=== PATIENT | female | born 1935 | race Caucasian/White ===

== ENCOUNTER 2021-09-13 03:48 | Inpatient (IN) | payer MEDICARE ==
[2021-09-13] MEDS ORDERED: SODIUM CHLORIDE 0.9% 1,000 ML IV STA (04:06)
[2021-09-13] MEDS ORDERED: LABETALOL 5 MG/ML VIAL MDV IVP STA ×2 (04:10→05:38)
[2021-09-13] MEDS ORDERED: MORPHINE SULFATE 4 MG/ML SYRINGE IVP STA (04:10)
--- NOTE | 2021-09-13 04:21 | ED ---
Weakness HPI - General Stated complaint: Stroke-like symptoms Time Seen by Provider: 09/13/21 03:50 Source: RN notes reviewed, old records reviewed Mode of arrival: EMS Limitations: altered mental status - History of Present Illness Initial comments: 76-year-old female poor historian. Patient is coming in for what may appear to be some altered mental status not acting appropriately. Patient per family and EMS to obtain history. Patient is able to respond is alert and oriented is able to move all extremities without difficulty. No family is currently at bedside. Patient is unable to give any history of complaints currently. She is able answer questions. Is able answer yes or no. MD Complaint: generalized weakness, lack of energy, difficulty walking -: unknown Location: generalized Severity: severe Severity scale (1-10): 10 Quality: constant Consistency: constant Improves with: none Worsens with: none Context: recent illness, history of similar Associated Symptoms: confusion, loss of appetite, nausea/vomiting - Related Data Home Medications Medication Instructions Recorded Confirmed No Known Home Medications 09/13/21 09/13/21 Allergies Allergy/AdvReac Type Severity Reaction Status Date / Time No Known Allergies Allergy Verified 09/13/21 05:06 Review of Systems ROS Statement: Those systems with pertinent positive or pertinent negative responses have been documented in the HPI. ROS Other: All systems not noted in ROS Statement are negative. General Exam Limitations: altered mental status General appearance: alert, anxious, lethargic, cachectic Head exam: Present: atraumatic, normocephalic, normal inspection Eye exam: Present: normal appearance, PERRL, EOMI. Absent: scleral icterus, conjunctival injection, periorbital swelling ENT exam: Present: normal exam, mucous membranes moist Neck exam: Present: normal inspection. Absent: tenderness, meningismus, lymphadenopathy Respiratory exam: Present: normal lung sounds bilaterally. Absent: respiratory distress, wheezes, rales, rhonchi, stridor Cardiovascular Exam: Present: regular rate, normal rhythm, normal heart sounds. Absent: systolic murmur, diastolic murmur, rubs, gallop, clicks GI/Abdominal exam: Present: soft, normal bowel sounds. Absent: distended, tenderness, guarding, rebound, rigid Extremities exam: Present: normal inspection, full ROM, normal capillary refill. Absent: tenderness, pedal edema, joint swelling, calf tenderness Back exam: Present: normal inspection Neurological exam: Present: alert, oriented X3, CN II-XII intact Psychiatric exam: Present: normal affect, normal mood Skin exam: Present: warm, dry, intact, normal color. Absent: rash Course Vital Signs 09/13/21 09/13/21 09/13/21 04:40 06:46 07:28 Temperature 97.5 F L Pulse Rate 81 Respiratory 16 12 12 Rate Blood Pressure 221/141 O2 Sat by Pulse 95 Oximetry 09/13/21 09/13/21 09/13/21 08:06 08:16 11:17 Temperature Pulse Rate 90 79 Respiratory 16 18 Rate Blood Pressure 178/120 165/101 178/106 O2 Sat by Pulse 97 98 Oximetry 09/13/21 15:04 Temperature 97.8 F Pulse Rate 78 Respiratory 18 Rate Blood Pressure 176/113 O2 Sat by Pulse 99 Oximetry - Reevaluation(s) Reevaluation #1: 09/13/21 Medical record is reviewed Patient remains poor strain in the ER Patient's blood pressure is significantly elevated on arrival Reevaluation #2: 09/13/21 Patient's blood pressure there was concern for acute aortic dissection CT of the abdomen and pelvis was obtained which did show rectal fecal impaction significant urinary retention Ratliff was placed here in the ER and patient was manually disimpacted Patient was given some significant sedation for procedures and remains slightly obtunded Reevaluation #3: 09/13/21 speaking with family and patient is DNR Reevaluation #4: 09/13/21 Patient was initially significantly elevated blood pressure which is now improved - Consultations Consultation #1: spoke w [facility] who are ok for admission EKG Findings - EKG Comments: EKG Findings:: EKG is A. fib 94, QRS 80 QTc 452 Medical Decision Making - Medical Decision Making 86 female to the emergency department for evaluation currently mildly obtunded altered on arrival patient was having some difficulty with speaking prior to arrival and weakness. No significant acute cause found. Patient did have significant fecal rectal impaction as well as urinary retention which are resolved here in the ER - Lab Data Result diagrams: 09/13/21 04:38 09/13/21 04:38 Lab Results 09/13/21 09/13/21 09/13/21 Range/Units 04:38 04:38 04:38 WBC 8.2 (3.8-10.6) k/uL RBC 4.05 (3.80-5.40) m/uL Hgb 12.6 (11.4-16.0) gm/dL Hct 38.5 (34.0-46.0) % MCV 95.1 (80.0-100.0) fL MCH 31.0 (25.0-35.0) pg MCHC 32.6 (31.0-37.0) g/dL RDW 13.3 (11.5-15.5) % Plt Count 155 (150-450) k/uL MPV 7.9 Neutrophils % 77 % Lymphocytes % 15 % Monocytes % 7 % Eosinophils % 1 % Basophils % 0 % Neutrophils # 6.3 (1.3-7.7) k/uL Lymphocytes # 1.2 (1.0-4.8) k/uL Monocytes # 0.5 (0-1.0) k/uL Eosinophils # 0.1 (0-0.7) k/uL Basophils # 0.0 (0-0.2) k/uL PT 10.9 (9.0-12.0) sec INR 1.0 (<1.2) APTT 21.6 L (22.0-30.0) sec Sodium (137-145) mmol/L Potassium (3.5-5.1) mmol/L Chloride (98-107) mmol/L Carbon Dioxide (22-30) mmol/L Anion Gap mmol/L BUN (7-17) mg/dL Creatinine (0.52-1.04) mg/dL Est GFR (CKD-EPI)AfAm (>60 ml/min/1.73 sqM) Est GFR (CKD-EPI)NonAf (>60 ml/min/1.73 sqM) Glucose (74-99) mg/dL Lactic Ac Sepsis Rflx Plasma Lactic Acid Joel (0.7-2.0) mmol/L Calcium (8.4-10.2) mg/dL Phosphorus (2.5-4.5) mg/dL Magnesium (1.6-2.3) mg/dL Total Bilirubin (0.2-1.3) mg/dL AST (14-36) U/L ALT (4-34) U/L Alkaline Phosphatase (38-126) U/L Troponin I (0.000-0.034) ng/mL Total Protein (6.3-8.2) g/dL Albumin (3.5-5.0) g/dL Urine Color Colorless Urine Appearance Clear (Clear) Urine pH 7.0 (5.0-8.0) Ur Specific [place] 1.017 (1.001-1.035) Urine Protein Negative (Negative) Urine Glucose (UA) Trace H (Negative) Urine Ketones Negative (Negative) Urine Blood Negative (Negative) Urine Nitrite Negative (Negative) Urine Bilirubin Negative (Negative) Urine Urobilinogen <2.0 (<2.0) mg/dL Ur Leukocyte Esterase Negative (Negative) 09/13/21 09/13/21 09/13/21 Range/Units 04:38 04:38 04:38 WBC (3.8-10.6) k/uL RBC (3.80-5.40) m/uL Hgb (11.4-16.0) gm/dL Hct (34.0-46.0) % MCV (80.0-100.0) fL MCH (25.0-35.0) pg MCHC (31.0-37.0) g/dL RDW (11.5-15.5) % Plt Count (150-450) k/uL MPV Neutrophils % % Lymphocytes % % Monocytes % % Eosinophils % % Basophils % % Neutrophils # (1.3-7.7) k/uL Lymphocytes # (1.0-4.8) k/uL Monocytes # (0-1.0) k/uL Eosinophils # (0-0.7) k/uL Basophils # (0-0.2) k/uL PT (9.0-12.0) sec INR (<1.2) APTT (22.0-30.0) sec Sodium 129 L (137-145) mmol/L Potassium 4.1 (3.5-5.1) mmol/L Chloride 100 (98-107) mmol/L Carbon Dioxide 23 (22-30) mmol/L Anion Gap 6 mmol/L BUN 22 H (7-17) mg/dL Creatinine 0.63 (0.52-1.04) mg/dL Est GFR (CKD-EPI)AfAm >90 (>60 ml/min/1.73 sqM) Est GFR (CKD-EPI)NonAf 81 (>60 ml/min/1.73 sqM) Glucose 165 H (74-99) mg/dL Lactic Ac Sepsis Rflx Plasma Lactic Acid Joel 2.2 H* (0.7-2.0) mmol/L Calcium 9.1 (8.4-10.2) mg/dL Phosphorus 2.9 (2.5-4.5) mg/dL Magnesium 1.8 (1.6-2.3) mg/dL Total Bilirubin 0.8 (0.2-1.3) mg/dL AST 30 (14-36) U/L ALT 17 (4-34) U/L Alkaline Phosphatase 52 (38-126) U/L Troponin I <0.012 (0.000-0.034) ng/mL Total Protein 6.6 (6.3-8.2) g/dL Albumin 3.7 (3.5-5.0) g/dL Urine Color Urine Appearance (Clear) Urine pH (5.0-8.0) Ur Specific [place] (1.001-1.035) Urine Protein (Negative) Urine Glucose (UA) (Negative) Urine Ketones (Negative) Urine Blood (Negative) Urine Nitrite (Negative) Urine Bilirubin (Negative) Urine Urobilinogen (<2.0) mg/dL Ur Leukocyte Esterase (Negative) 09/13/21 Range/Units 05:06 WBC (3.8-10.6) k/uL RBC (3.80-5.40) m/uL Hgb (11.4-16.0) gm/dL Hct (34.0-46.0) % MCV (80.0-100.0) fL MCH (25.0-35.0) pg MCHC (31.0-37.0) g/dL RDW (11.5-15.5) % Plt Count (150-450) k/uL MPV Neutrophils % % Lymphocytes % % Monocytes % % Eosinophils % % Basophils % % Neutrophils # (1.3-7.7) k/uL Lymphocytes # (1.0-4.8) k/uL Monocytes # (0-1.0) k/uL Eosinophils # (0-0.7) k/uL Basophils # (0-0.2) k/uL PT (9.0-12.0) sec INR (<1.2) APTT (22.0-30.0) sec Sodium (137-145) mmol/L Potassium (3.5-5.1) mmol/L Chloride (98-107) mmol/L Carbon Dioxide (22-30) mmol/L Anion Gap mmol/L BUN (7-17) mg/dL Creatinine (0.52-1.04) mg/dL Est GFR (CKD-EPI)AfAm (>60 ml/min/1.73 sqM) Est GFR (CKD-EPI)NonAf (>60 ml/min/1.73 sqM) Glucose (74-99) mg/dL Lactic Ac Sepsis Rflx Y Plasma Lactic Acid Joel (0.7-2.0) mmol/L Calcium (8.4-10.2) mg/dL Phosphorus (2.5-4.5) mg/dL Magnesium (1.6-2.3) mg/dL Total Bilirubin (0.2-1.3) mg/dL AST (14-36) U/L ALT (4-34) U/L Alkaline Phosphatase (38-126) U/L Troponin I (0.000-0.034) ng/mL Total Protein (6.3-8.2) g/dL Albumin (3.5-5.0) g/dL Urine Color Urine Appearance (Clear) Urine pH (5.0-8.0) Ur Specific [place] (1.001-1.035) Urine Protein (Negative) Urine Glucose (UA) (Negative) Urine Ketones (Negative) Urine Blood (Negative) Urine Nitrite (Negative) Urine Bilirubin (Negative) Urine Urobilinogen (<2.0) mg/dL Ur Leukocyte Esterase (Negative) - Radiology Data Radiology results: report reviewed (CT of her chest abdomen pelvis is negative for significant acute disease but does show urinary retention with fecal impaction), image reviewed Disposition Clinical Impression: Urinary retention, Fecal impaction, Weakness, Hyponatremia, Altered mental status, Hypertensive urgency Disposition: ADMITTED IP TO THIS HOSP Condition: Fair Is patient prescribed a controlled substance at d/c from ED?: No
--- NOTE | 2021-09-13 04:48 | CT ---
EXAMINATION TYPE: CT abdomen pelvis w con DATE OF EXAM: 09/13/2021 COMPARISON: None HISTORY: pain CT DLP: 371.1 mGycm Automated exposure control for dose reduction was used. CONTRAST: Performed with IV Contrast, patient injected with 100 mL of Isovue 370. Images obtained from the diaphragm to the floor the pelvis with IV contrast. Heart is enlarged. There is no pleural effusion. There is some interstitial increased density at the lung bases. Liver shows no focal defect. The bile ducts are nondilated. Spleen is intact. There is no evidence of pancreatic mass. Gallbladder is intact. There is no adrenal mass. Kidneys show satisfactory contrast opacification. There is no hydronephrosi s. Delayed images show normal excretion. There is no retroperitoneal adenopathy. Bladder distends smo othly. There is retained fecal material in the rectum that measures 8.5 cm. There is no inguinal mario ia. There is no free fluid in the pelvis. There is no ascites or free air. There is mild biconcave changes of the lumbar vertebra consistent with osteomalacia. The bony pelvis is intact. The hip joints are intact. There is mild lumbar dextroscoliosis. I see no focal bone dest ruction. Appendix not seen. No sign of thickened appendix. IMPRESSION: There is rectal fecal impaction. Fibrotic changes at the lung bases. Cardiomegaly. No free air.
[2021-09-13 04:50] LABS: Basophils % (A) 0 %; Eosinophils # (A) 0.1 k/uL (0-0.7); Eosinophils % (A) 1 %; HCT 38.5 % (34.0-46.0); HGB 12.6 gm/dL (11.4-16.0); Lymphocytes # (A) 1.2 k/uL (1.0-4.8); Lymphocytes % (A) 15 %; MCHC 32.6 g/dL (31.0-37.0); MCV 95.1 fL (80.0-100.0); Mean Platelet Volume 7.9; Monocytes # (A) 0.5 k/uL (0-1.0); Monocytes % (A) 7 %; Neutrophils # (A) 6.3 k/uL (1.3-7.7); Neutrophils % (A) 77 %; Platelet Count 155 k/uL (150-450); RBC 4.05 m/uL (3.80-5.40); RDW 13.3 % (11.5-15.5); WBC 8.2 k/uL (3.8-10.6)
[2021-09-13 05:03] LABS: ALT 17 U/L (4-34); AST 30 U/L (14-36); African American GFR (CKD) >90 (>60 ml/min/1.73 sqM); Albumin 3.7 g/dL (3.5-5.0); Alkaline Phosphatase 52 U/L (38-126); Anion Gap 6 mmol/L; Blood Urea Nitrogen 22 mg/dL (7-17); Calcium 9.1 mg/dL (8.4-10.2); Carbon Dioxide 23 mmol/L (22-30); Chloride 100 mmol/L (98-107); Glucose 165 mg/dL (74-99); Magnesium 1.8 mg/dL (1.6-2.3); Non-African American GFR(CKD) 81 (>60 ml/min/1.73 sqM); Phosphorus 2.9 mg/dL (2.5-4.5); Potassium 4.1 mmol/L (3.5-5.1); Sodium 129 mmol/L (137-145); Total Bilirubin 0.8 mg/dL (0.2-1.3); Total Protein 6.6 g/dL (6.3-8.2)
[2021-09-13 05:10] LABS: Partial Thromboplastin Time 21.6 sec (22.0-30.0); Prothrombin Time 10.9 sec (9.0-12.0)
--- NOTE | 2021-09-13 05:18 | CT ---
EXAMINATION TYPE: CT angio chest DATE OF EXAM: 09/13/2021 COMPARISON: None HISTORY: pe CT DLP: 176.1 mGycm Automated exposure control for dose reduction was used. CONTRAST: Performed with IV Contrast, patient injected with 100 mL of Isovue 370. Images obtained from the thoracic inlet to the diaphragm with IV contrast. There are 3-D post processed images. There is no evidence of filling defect in the pulmonary arteries. Thoracic aorta is atheromatous. The re is no dissection. The ascending aorta measures 3.3 cm. There are no hilar masses. There is no medi astinal adenopathy. There is some patchy atelectasis at the lung bases. Heart is enlarged. There is thoracic mild kyphoti c deformity. There is osteopenia. There is some anterior mild wedging of a few thoracic vertebra.Ther e is some osteoarthritis in the shoulder joints. IMPRESSION: No evidence of pulmonary embolism. Fibrotic changes and subsegmental atelectasis at the lung bases. C ardiomegaly.
[2021-09-13 05:31] LABS: Appearance,Urine Clear (Clear); Bilirubin,Urine Negative (Negative); Blood,Urine Negative (Negative); Color,Urine Colorless; Glucose,Urine (UA) Trace (Negative); Ketones,Urine Negative (Negative); Leukocyte Esterase,Urine Negative (Negative); Nitrite,Urine Negative (Negative); Protein,Urine Negative (Negative); Specific Gravity,Urine 1.017 (1.001-1.035); Urobilinogen,Urine <2.0 mg/dL (<2.0)
[2021-09-13] MEDS ORDERED: HYDROmorphone 1 MG/ML 1 ML SYRINGE IVP STA (05:46)
[2021-09-13] MEDS ORDERED: LORazepam 2 MG/ML INJ IV STA (05:46)
[2021-09-13] MEDS ORDERED: ONDANSETRON 4 MG/2 ML VIAL IVP PRN (06:18)
[2021-09-13] MEDS ORDERED: MORPHINE SULFATE 4 MG/ML SYRINGE IV PRN (06:18)
[2021-09-13] MEDS ORDERED: LORazepam 2 MG/ML INJ IV PRN (06:18)
[2021-09-13] MEDS ORDERED: NALOXONE 0.4 MG/ML 1 ML VIAL IV PRN (06:18)
[2021-09-13] MEDS ORDERED: SENNOSIDES-DOCUSATE SODIUM 1 EACH TAB PO STA (06:36)
[2021-09-13] MEDS ORDERED: SODIUM CHLORIDE 0.9% 1,000 ML IV ONE (06:36)
[2021-09-13] MEDS ORDERED: GLYCERIN ADULT SUPPOSITORY 1 EACH RECTAL STA (06:36)
[2021-09-13] MEDS ORDERED: NALOXONE 0.4 MG/ML 1 ML VIAL IVP STA (06:48)
[2021-09-13] MEDS: SODIUM CHLORIDE 0.9% 1,000 ML IV SCH ×3 (06:57→19:50)
[2021-09-13] MEDS ORDERED: NALOXONE 0.4 MG/ML 10 ML VIAL IVP STA ×2 (07:18→07:25)
--- NOTE | 2021-09-13 09:52 | CT ---
EXAMINATION TYPE: CT brain wo con DATE OF EXAM: 09/13/2021 COMPARISON: None HISTORY: R/o CVA CT DLP: [address] of the brain was performed. The ventricles, basal cisterns and sulci overlying the cerebral convexities demonstrate mild enlargem ent. There is no evidence for intracranial hemorrhage or sulcal effacement. There is decreased attenuation about the periventricular white matter and deep white matter of both c erebral hemispheres, compatible with chronic small vessel ischemia. Differential diagnosis does inclu de demyelination. No mass effects are seen.No midline shift. Osseous calvarium is intact. If symptoms persist consider MRI. IMPRESSION: 1. Age related atrophic and chronic small vessel ischemic change without acute intracranial process s een at this time.
--- NOTE | 2021-09-13 13:47 | P.HPIM ---
History of Present Illness H&P Date: 09/13/21 This is a 86-year-old female who presented to the emergency room with concerns about slurred speech. At the time of my evaluation, patient was completely obtunded and hardly arousable. Apparently, patient was given IV morphine and IV Ativan by ER physician and then became very somnolent. Then she was given 2 doses of naloxone with minimal response. Her son at bedside providing history. Apparently patient has a history of paroxysmal atrial fibrillation and supposed to be on Rivaroxaban and atenolol. Her son told me that patient does not like to take any of her medications. At baseline, she is able to get up and ambulate and take care of her activities of daily living. Apparently yesterday she sustained a fall at home according to her son and she landed on the carpet. She then went to bed and woke up in the middle of the night with slurred speech. Her son called EMS and brought her to the emergency room. In the emergency room, a computed tomography scan of the abdomen and pelvis was done as well as a CT angiogram for unclear reasons to me. He shouldn't was found to have fecal impaction and was disimpacted in the ER. No computed tomography scan of the head was done. Review of Systems Unable to review other systems as patient is very confused Past Medical History Past Medical History: No Reported History History of Any Multi-Drug Resistant Organisms: None Reported Past Surgical History: No Surgical Hx Reported Past Psychological History: No Psychological Hx Reported Smoking Status: Never smoker Past Alcohol Use History: None Reported Past Drug Use History: None Reported Medications and Allergies Home Medications Medication Instructions Recorded Confirmed Type No Known Home Medications 09/13/21 09/13/21 History Allergies Allergy/AdvReac Type Severity Reaction Status Date / Time No Known Allergies Allergy Verified 09/13/21 05:06 Physical Exam Vitals: Vital Signs Temp Pulse Resp BP Pulse Ox 09/13/21 11:17 79 18 178/106 98 09/13/21 08:16 165/101 09/13/21 08:06 90 16 178/120 97 09/13/21 07:28 12 09/13/21 06:46 12 09/13/21 04:40 97.5 F L 81 16 221/141 95 Intake and Output 10/22/21 10/23/21 10/23/21 22:59 06:59 14:59 Other: Weight 45.359 kg General: The patient is obtunded and only responsive to sternal rub Eye: there is normal conjunctiva bilaterally. Neck: The neck is supple, there is no JVD. Cardiovascular: Normal S1-S2, no S3-S4, no murmurs. Respiratory: Lungs clear to auscultation bilaterally Gastrointestinal: Abdomen is soft, nontender Musculoskeletal: There is no pedal edema. Skin: Skin is warm and dry Results CBC & Chem 7: 09/13/21 04:38 09/13/21 04:38 Labs: Abnormal Lab Results - Last 24 Hours (Table) 09/13/21 09/13/21 09/13/21 Range/Units 04:38 04:38 04:38 APTT 21.6 L (22.0-30.0) sec Sodium 129 L (137-145) mmol/L BUN 22 H (7-17) mg/dL Glucose 165 H (74-99) mg/dL Plasma Lactic Acid Joel (0.7-2.0) mmol/L Urine Glucose (UA) Trace H (Negative) 09/13/21 Range/Units 04:38 APTT (22.0-30.0) sec Sodium (137-145) mmol/L BUN (7-17) mg/dL Glucose (74-99) mg/dL Plasma Lactic Acid Joel 2.2 H* (0.7-2.0) mmol/L Urine Glucose (UA) (Negative) Assessment and Plan Assessment: This is a 86-year-old female with past medical history significant for n onicteric atrial fibrillation noncompliant with anticoagulation that presented to the emergency room brought in by her son for slurred speech. Patient was given IV morphine and IV Ativan in the ER and currently she is completely obtunded. Below is as of her medical problems: 1. Suspected CVA/TIA 2. Acute toxo metabolic encephalopathy secondary to benzodiazepine and opiate in older opiate carolyne patient 3. History of atrial fibrillation not on anticoagulation secondary to noncompliance 4. CODE STATUS: Patient is DO NOT RESUSCITATE/DO NOT INTUBATE Today, I reviewed her medication list and lab work results. Stat computed tomography scan of the head showed no acute intracranial findings. I suspect her mentation will improve in the next few hours. Bedside swallow evaluation. Start aspirin 325 mg daily and metoprolol 25 mg twice a day. Consult neurology for further evaluation. Hold off on anticoagulation at this time. May consider MRI of the brain.
[2021-09-13] MEDS: ASPIRIN 325 MG TAB PO SCH (15:04)
[2021-09-13] MEDS: ENOXAPARIN 40 MG/0.4 ML SYRINGE SQ SCH (15:08)
--- NOTE | 2021-09-13 17:50 | ECHOF ---
Referral Reason:Afib, TIA MEASUREMENTS -------- HEIGHT: 165.1 cm WEIGHT: 45.4 kg BP: 178/106 RVIDd: 3.0 cm (< 3.3) IVSd: 0.9 cm (0.6 - 1.1) LVIDd: 4.2 cm (3.9 - 5.3) LVPWd: 1.2 cm (0.6 - 1.1) IVSs: 1.3 cm LVIDs: 3.3 cm LVPWs: 1.6 cm LA Diam: 5.4 cm (2.7 - 3.8) LAESV Index (A-L): 66.88 ml/m Ao Diam: 3.2 cm (2.0 - 3.7) AV Cusp: 0.9 cm (1.5 - 2.6) MV EXCURSION: 15.618 mm (> 18.000) MV EF SLOPE: 136 mm/s (70 - 150) EPSS: 0.5 cm MV E Ranjit: 1.07 m/s MV DecT: 142 ms MV A Ranjit: 0.27 m/s MV E/A Ratio: 3.97 AV maxP.38 mmHg AV meanP.73 mmHg RAP: 15.00 mmHg RVSP: 41.81 mmHg FINDINGS -------- Atrial fibrillation. This was a technically good study. The left ventricular size is normal. There is borderline concentric left ventricular hypertrophy. Overall left ventricular systolic function is mild-moderately impaired with, an EF between 40 - 45 % . The right ventricle is normal in size. LA is severely dilated >40 ml/m2 The right atrium is normal in size. Contrast study was performed with 1 iv injection of 8 ccs of agitated normal saline at rest. Patient was unable to cooperate with maneuvers. Negative saline bubble study. 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 There is [id number] aortic stenosis pre sent. The maximum velocity across the aortic valve is 3.75m/s. Peak/mean gradient across the Aort ic Valve is 56.38mmHg / 31.73mmHg. The mitral valve leaflets are mildly thickened. Mild mitral annular calcification present. Mild-t o-moderate mitral regurgitation is present. Mild tricuspid regurgitation present. There is mild pulmonary hypertension. The right ventricular systolic pressure, as measured by Doppler, is 41.81mmHg. The pulmonic valve was not well visualized. The aortic root size is normal. The inferior vena cava is dilated with no significant inspiratory collapse which is consistent estima pedro right atrial pressure of >15 mmHg. There is no pericardial effusion. CONCLUSIONS -------- 1. The left ventricular size is normal. 2. There is borderline concentric left ventricular hypertrophy. 3. Overall left ventricular systolic function is mild-moderately impaired with, an EF between 40 - 45 %. 4. LA is severely dilated >40 ml/m2 5. Contrast study was performed with 1 iv injection of 8 ccs of agitated normal saline at rest. 6. Patient was unable to cooperate with maneuvers. 7. Negative saline bubble study. No shunt noted 8. 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 9. There is [id number] aortic stenosis present. 10. The maximum velocity across the aortic valve is 3.75m/s. 11. Peak/mean gradient across the Aortic Valve is 56.38mmHg / 31.73mmHg. 12. The mitral valve leaflets are mildly thickened. 13. Mild mitral annular calcification present. 14. [id number] mitral regurgitation is present. 15. Mild tricuspid regurgitation present. 16. There is mild pulmonary hypertension. 17. The right ventricular systolic pressure, as measured by Doppler, is 41.81mmHg. 18. The inferior vena cava is dilated with no significant inspiratory collapse which is consistent es timated right atrial pressure of >15 mmHg. 19. There is no pericardial effusion. ENVIRONMENTAL PROPERTY ASSESSOR: Jaimie Ruiz RDCS
[2021-09-13] MEDS: METOPROLOL TARTRATE 25 MG TAB PO SCH (19:35)
[2021-09-13 20:18] LABS: Glucose,Whole Blood 110 mg/dL (75-99)
[2021-09-13] MEDS ORDERED: GLYCERIN ADULT SUPPOSITORY 1 EACH RECTAL SCH (21:00)
[2021-09-14] MEDS: SODIUM CHLORIDE 0.9% 1,000 ML IV SCH (06:21)
--- NOTE | 2021-09-14 08:45 | P.CNNES ---
History of Present Illness Consult date: 09/13/21 Requesting physician: Nay Webb Reason for Consult: Rule out CVA History of Present Illness: This is a Tele-neurology consultation performed today on 09/13/2021. Patient is a 86-year-old female came to the hospital today triage assistant at 3:48 AM by ambulance. EMS flow sheet not available in the chart. Patient's daughter and son were present at the time of this interview. Patient's daughter states that her brother lives with the patient. Patient yesterday at 8 PM was in the kitchen, cleaning the kitchen and apparently suffered from a fall on her back. It is very unusual for her to fall. She did not pass out, did not hit her head, as she landed on her buttocks. Patient's son put her in bed. At around 2:30 AM he saw that her bedroom lights were on. He went into her bedroom and she was incoherent, her mouth was moving but words were not coming out. She was slurring, not coherent. He called EMS. It was noted that she was able to lift her arm, there was no facial droop. Patient does have history of atrial fibrillation for over 25 years. She used to be on Coumadin, but she stopped taking Coumadin on her own 2 years ago. She has been feeling fine since then. She is not even taking any aspirin. She has not had any strokes or TIAs in the last 2 years since she has stopped Coumadin. There is no history of diabetes although she does have hypertension. She never smoked, drinks alcohol socially. At baseline, patient can get around house with her walker and also had a cane. However she is also used to walking without any device. When she fell in the kitchen last night, she was not using any device. Vital signs on arrival blood pressure 221/141, pulse rate 81 temperature 97.5. Her blood pressure did improve to 178/120 and most recent is 176/113. Blood tests shows normal CBC, PT/PTT, sodium 129 potassium 4.1, BU and 22, creatinine 0.63. Hepatic panel is normal troponin negative, UA negative. Coronavirus PCR negative. Patient's EKG shows atrial fibrillation, nonspecific ST abnormality. Probable digitalis effect. Computed tomography scan of the head shows age-related atrophic and chronic small vessel ischemic change without acute interfere process seen at this time. CTA of the chest shows no evidence of pulmonary embolism. Fibrotic changes in subsegmental atelectasis at the lung bases. Cardiomegaly. CT of abdomen and pelvis shows rectal fecal impaction fib rotic changes at the lung bases. Cardiomegaly. No free air. Patient's home medications not available. Patient currently on aspirin 325 mg daily, Lovenox 40 mg subcu daily. While in the hospital patient was diagnosed with bowel obstruction. 4 performing manual extraction of bowels, patient was given 4 mg of morphine, 1 mg of Dilaudid and 1 mg of Ativan. Patient now is sleeping. She was given 3 doses of Narcan, with some improvement. Patient probably has effect of Ativan. Patient's daughter believes that she does have mild dementia, as she would forget the day and the date. Review of Systems ROS unobtainable: due to mental status Past Medical History Past Medical History: Atrial Fibrillation, Hypertension History of Any Multi-Drug Resistant Organisms: None Reported Past Surgical History: No Surgical Hx Reported Past Anesthesia/Blood Transfusion Reactions: No Reported Reaction Past Psychological History: No Psychological Hx Reported Smoking Status: Never smoker Past Alcohol Use History: None Reported Past Drug Use History: None Reported Medications and Allergies Home Medications Medication Instructions Recorded Confirmed Type No Known Home Medications 09/13/21 09/13/21 History Allergies Allergy/AdvReac Type Severity Reaction Status Date / Time No Known Allergies Allergy Verified 09/13/21 05:06 Physical Examination - Vital Signs Vital Signs: Vital Signs Temp Pulse Resp BP Pulse Ox 09/13/21 15:04 97.8 F 78 18 176/113 99 09/13/21 11:17 79 18 178/106 98 09/13/21 08:16 165/101 09/13/21 08:06 90 16 178/120 97 09/13/21 07:28 12 09/13/21 06:46 12 09/13/21 04:40 97.5 F L 81 16 221/141 95 Intake and Output 09/13/21 09/13/21 09/13/21 06:59 14:59 22:59 Other: Weight 45.359 kg 45.359 kg Patient is an elderly female, who is sleeping at this time. Patient is asleep, snoring, probably effect of medication. After trying to wake her up, she was able to tell her name Harmony and she states that she is in [facility]. She states the month is December and the year is 1998. She does not know the name of the president. Speech and language functions are normal. Patient able to name objects like hand, earlobe and can repeat. Att ention, concentration and fund of knowledge is limited. On cranial examination, pupils are round and reacting to light, visual steward are full on confrontation, extraocular muscles are intact with no nystagmus. Face is symmetric, tongue protrudes to the midline. Palatal elevation and sensation normal, hearing is moderately decreased and shoulder shrug normal, facial sensation normal. 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 In the lower expertise patient did not cooperate well. Hip flexion appears normal. Ankle dorsiflexion was normal on the right, patient did not cooperate with testing on the left. Deep tendon reflexes are 2 at the biceps, 1 brachioradialis, 1 at the knees and plantars are upgoing bilaterally. Sensory to touch is equal with no neglect. Cerebellar function showed no ataxia for [id number] testing. Tone and bulk of muscles normal. Gait not checked. On general examination, there is no carotid bruit or murmur, S1-S2 audible. Abdomen is soft nontender. Chest is clear. Peripheral pulses are present. No edema. Results - Laboratory Findings CBC and BMP: 09/13/21 04:38 09/13/21 04:38 Abnormal Lab Findings: Abnormal Labs 09/13/21 09/13/21 09/13/21 04:38 04:38 04:38 APTT 21.6 L Sodium 129 L BUN 22 H Glucose 165 H Plasma Lactic Acid Joel Urine Glucose (UA) Trace H 09/13/21 04:38 APTT Sodium BUN Glucose Plasma Lactic Acid Joel 2.2 H* Urine Glucose (UA) Assessment and Plan Assessment: * Status post fall unclear etiology, ? Syncope or fall due to losing balance. * Episode of slurred speech, not able to express, rule out TIA. * Somnolence/AMS, likely due to medication induced. Patient was given Dilaudid, morphine and Ativan, which likely resulted in somnolence. * Atrial fibrillation, currently not on anticoagulation. * Medication noncompliance. Patient has not been taking any medication whatsoever for last 2 years. * Hypertension * Mild cognitive impairment Plan: * Patient possibly had a TIA last night. Patient has atrial fibrillation, currently not on anticoagulation, therefore high risk for TIA. She is not taking any anticoagulants or antiplatelet medication at home. I discussed with patient's daughter and son about starting anticoagulation for atrial fibrillation to prevent stroke/TIA. Patient's daughter is positive that patient will not take any anticoagulants at home. She may agree to taking at least aspirin a day. Patient will be continued on aspirin at this time. Patient's family is aware that aspirin does not offer adequate protection for strokes related to atrial fibrillation, but is better than nothing. They understand the risks of not taking anticoagulation. * At present patient is very somnolent due to the medication she has received. We will follow up in the morning. * Carotid Doppler to rule out stenosis * 2-D echo revealed normal left ventricular size. Borderline concentric LVH. Left ventricle systolic function is mild to moderately impaired with EF between 40-45%. Left atrium is severely dilated. Contrast study was performed with 1 IV injection of 8 mL of agitated normal saline at rest. Negative saline bubble study. No shunt noted. 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 Moderate to severe aortic stenosis. Mild to moderate MR. Suggest cardiology consultation for abnormal echo findings with moderate to severe aortic stenosis. * B12, folate, TSH hemoglobin A1c, lipid panel * Thank you for the consult. Time with Patient: Greater than 30
[2021-09-14] MEDS: ENOXAPARIN 40 MG/0.4 ML SYRINGE SQ SCH (09:11)
[2021-09-14] MEDS: METOPROLOL TARTRATE 25 MG TAB PO SCH ×2 (09:11→21:05)
[2021-09-14] MEDS: lisinopriL 10 MG TAB PO SCH (09:11)
[2021-09-14] MEDS: ASPIRIN 325 MG TAB PO SCH (09:12)
[2021-09-14 09:19] LABS: Basophils % (A) 0 %; Eosinophils % (A) 0 %; HCT 34.5 % (34.0-46.0); HGB 11.9 gm/dL (11.4-16.0); Lymphocytes % (A) 13 %; MCH 31.5 pg (25.0-35.0); MCHC 34.5 g/dL (31.0-37.0); MCV 91.5 fL (80.0-100.0); Monocytes # (A) 0.5 k/uL (0-1.0); Monocytes % (A) 7 %; Neutrophils # (A) 6.1 k/uL (1.3-7.7); Neutrophils % (A) 79 %; Platelet Count 134 k/uL (150-450); RBC 3.78 m/uL (3.80-5.40); RDW 13.9 % (11.5-15.5); WBC 7.8 k/uL (3.8-10.6)
[2021-09-14 09:20] LABS: ALT 20 U/L (4-34); AST 36 U/L (14-36); African American GFR (CKD) >90 (>60 ml/min/1.73 sqM); Albumin 3.4 g/dL (3.5-5.0); Alkaline Phosphatase 49 U/L (38-126); Anion Gap 6 mmol/L; Blood Urea Nitrogen 10 mg/dL (7-17); Calcium 8.8 mg/dL (8.4-10.2); Carbon Dioxide 22 mmol/L (22-30); Chloride 98 mmol/L (98-107); Glucose 96 mg/dL (74-99); Non-African American GFR(CKD) 86 (>60 ml/min/1.73 sqM); Potassium 3.8 mmol/L (3.5-5.1); Sodium 126 mmol/L (137-145); Total Bilirubin 1.1 mg/dL (0.2-1.3); Total Protein 6.1 g/dL (6.3-8.2)
--- NOTE | 2021-09-14 10:53 | P.PN ---
Subjective Patient mentation is significantly better today. She is awake and alert. Her son is at bedside. He told me that her speech is not back to normal yet. Objective - Vital Signs Vital signs: Vital Signs Temp 98.9 F 09/14/21 07:50 Pulse 75 09/14/21 07:50 Resp 18 09/14/21 07:50 BP 179/89 09/14/21 07:50 Pulse Ox 94 L 09/14/21 07:50 Intake & Output 09/13/21 09/14/21 09/14/21 18:59 06:59 18:59 Intake Total 1310 300 Output Total 1700 800 Balance -390 -500 Weight 45.359 kg 74 kg Intake: IV 1080 Invasive Line 1 10 Invasive Line 2 30 Sodium Chloride 0.9% 1, 1040 000 ml @ 130 mls/hr IV . Q7H42M [facility] Rx#:[id number] Oral 230 300 Output: Urine 1700 800 Other: Voiding Method Indwelling Catheter Indwelling Catheter - Exam General: The patient is awake and alert, in no distress Eye: there is normal conjunctiva bilaterally. Neck: The neck is supple, there is no JVD. Cardiovascular: Normal S1-S2, no S3-S4, no murmurs. Respiratory: Lungs clear to auscultation bilaterally Gastrointestinal: Abdomen is soft, nontender Musculoskeletal: There is no pedal edema. Neurological:. Speech is normal. Skin: Skin is warm and dry - Labs CBC & Chem 7: 09/14/21 08:24 09/14/21 08:24 Labs: Abnormal Lab Results - Last 24 Hours (Table) 09/13/21 09/14/21 09/14/21 Range/Units 19:36 08:24 08:24 RBC 3.78 L (3.80-5.40) m/uL Plt Count 134 L (150-450) k/uL Sodium 126 L (137-145) mmol/L POC Glucose (mg/dL) 110 H (75-99) mg/dL Total Protein 6.1 L (6.3-8.2) g/dL Albumin 3.4 L (3.5-5.0) g/dL Assessment and Plan Assessment: This is a 86-year-old female with past medical history significant for nonicteric atrial fibrillation noncompliant with anticoagulation that presented to the emergency room brought in by her son for slurred speech. Patient was given IV morphine and IV Ativan in the ER and currently she is completely obtunded. Below is as of her medical problems: 1. Suspected CVA/TIA 2. Acute toxo metabolic encephalopathy secondary to benzodiazepine and opiate in older opiate carolyne patient, now resolved 3. History of atrial fibrillation not on anticoagulation secondary to noncompliance: I will start patient on Rivaroxaban and 20 mg daily at the time. This was discussed with her and her son and patient verbalized willing to be compliant with medications 4. CODE STATUS: Patient is DO NOT RESUSCITATE/DO NOT INTUBATE Today, I reviewed her medication list and lab work results. Computed tomography scan of the head showed no acute intracranial findings. We will obtain MRI for further evaluation Echocardiogram showed preserved ejection fraction with moderate to severe aortic sclerosis and severe aortic stenosis. No evidence of intracardiac shunt Allowed permissive hypertension on presentation today lisinopril 10 mg daily added to her regimen Continue metoprolol 25 mg twice a day for underlying A. fib/hypertension PT/OT/speech pathology evaluation Appreciate neurology recommendations
--- NOTE | 2021-09-14 11:30 | US ---
EXAMINATION TYPE: US carotid duplex BILAT DATE OF EXAM: 09/14/2021 COMPARISON: NONE CLINICAL HISTORY: tia EXAM MEASUREMENTS: RIGHT: Peak Systolic Velocity (PSV) cm/sec ----- Right CCA: 36.2 ----- Right ICA: 49.0 ----- Right ECA: 44.1 ICA/CCA ratio: 1.4 RIGHT: End Diastole cm/sec ----- Right CCA: 10.6 ----- Right ICA: 8.5 ----- Right ECA: 10.1 LEFT: Peak Systolic Velocity (PSV) cm/sec ----- Left CCA: 35.7 ----- Left ICA: 54.0 ----- Left ECA: 56.9 ICA/CCA ratio: 1.5 LEFT: End Diastole cm/sec ----- Left CCA: 10.4 ----- Left ICA: 12.1 ----- Left ECA: 6.9 VERTEBRALS (direction of flow): Right Vertebral: Antegrade Left Vertebral: Antegrade Rhythm: Normal Tardus parvus waveforms seen bilaterally without significant velocity increases. Moderate plaque. IMPRESSION: No evidence for hemodynamically significant stenosis. Criteria for Assigning % of Stenosis / Diameter reduction (Estimation based on the indirect measurements of the internal carotid artery velocities (ICA PSV). 1. Normal (no stenosis)=ICA PSV < 125 cm/s: ratio < 2.0: ICA EDV<40 cm/s. 2. Less than 50% stenosis=ICA PSV < 125 cm/s: ratio < 2.0: ICA EDV<40 cm/s. 3. 50 to 69% stenosis=ICA PSV of 125 to 230 cm/s: ration 2.0 ? 4.0: ICA EDV 40-100 cm/s. 4. Greater than 70% stenosis to near occlusion= ICA PSV > 230 cm/s: ratio > 4.0: ICA EDV > 100 cm/s. 5. Near occlusion= ICA PSV velocities may be low or undetectable: variable ratio and ICA EDV. 6. Total occlusion=unable to detect flow.
[2021-09-14 11:57] LABS: Glucose,Whole Blood 93 mg/dL (75-99)
[2021-09-14] MEDS: ATORVASTATIN 40 MG TAB PO SCH (12:40)
[2021-09-14] MEDS: amLODIPine 5 MG TAB PO SCH (12:40)
[2021-09-14 17:03] LABS: LDL Cholesterol,Calculated 108.5 mg/dL (0.0-131.0); VLDL Calculation 19.56 mg/dL (5.00-40.00)
[2021-09-14] MEDS: RIVAROXABAN 20 MG TAB PO SCH (17:11)
--- NOTE | 2021-09-15 08:43 | P.PN ---
Subjective Progress Note Date: 09/14/21 This is a tele-neurologic follow-up performed today on 09/14/2021. Patient states she is feeling "fine". She denies any headache. She is hard of hearing. Patient offers no complaints. Patient's son was also present today. Objective - Vital Signs Vital signs: Vital Signs Temp 99.2 F 09/15/21 03:10 Pulse 84 09/15/21 03:10 Resp 18 09/15/21 03:10 BP 155/78 09/15/21 03:10 Pulse Ox 94 L 09/15/21 03:10 Intake & Output 09/14/21 09/15/21 09/15/21 18:59 06:59 18:59 Intake Total 1340 Output Total 1200 1100 Balance 140 -1100 Weight 45.9 kg Intake: Intake, IV Titration 260 Amount Sodium Chloride 0.9% 1, 260 000 ml @ 130 mls/hr IV . Q7H42M [facility] Rx#:[id number] Oral 1080 Output: Urine 1200 1100 Uretheral ([place]) 400 Other: Voiding Method Indwelling Catheter Indwelling Catheter - Exam Patient is today fully alert and awake. She is hard of hearing. Patient states it's the month of March and could not tell the year. She states that she does live in [place]. Patient could not tell name of the current president although when she was given multiple choices, she did speak up Mr. Steward. Her hip flexion is normal. Examination is relatively normal. - Labs CBC & Chem 7: 09/14/21 08:24 09/14/21 08:24 Labs: Abnormal Lab Results - Last 24 Hours (Table) 09/14/21 09/14/21 Range/Units 08:24 08:24 RBC 3.78 L (3.80-5.40) m/uL Plt Count 134 L (150-450) k/uL Sodium 126 L (137-145) mmol/L Total Protein 6.1 L (6.3-8.2) g/dL Albumin 3.4 L (3.5-5.0) g/dL Cholesterol 208.00 H (0.00-200.00) mg/dL HDL Cholesterol 79.90 H (40.00-60.00) mg/dL Assessment and Plan Assessment: * Status post fall unclear etiology, ? Syncope or fall due to losing balance. * Episode of slurred speech, not able to express, rule out TIA. * Somnolence/AMS, likely due to medication induced. Patient was given Dilaudid, morphine and Ativan, which likely resulted in somnolence. * Atrial fibrillation, currently not on anticoagulation. * Medication noncompliance. Patient has not been taking any medication whatsoever for last 2 years. * Hypertension * Mild cognitive impairment Plan: * Patient possibly had a TIA last night. Patient has atrial fibrillation, currently not on anticoagulation, therefore high risk for TIA. She was not taking any anticoagulants or antiplatelet medication at home. Patient has bee n started on aspirin 81 mg in the hospital. I discussed with patient and her son about resuming anticoagulation because of atrial fibrillation. Both of them are agreeing to be started on anticoagulation. We will have cardiology see the patient to decide about the choice of medication. Apparently MRI of the brain has also been ordered by primary physician. * Carotid Doppler revealed no evidence for hemodynamically significant stenosis. Moderate plaque. Antegrade flow in both vertebral arteries. No significant stenosis. * 2-D echo revealed normal left ventricular size. Borderline concentric LVH. Left ventricle systolic function is mild to moderately impaired with EF between 40-45%. Left atrium is severely dilated. Contrast study was performed with 1 IV injection of 8 mL of agitated normal saline at rest. Negative saline bubble study. No shunt noted. 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 Moderate to severe aortic stenosis. Mild to moderate MR. We will consult cardiology for atrial fibrillation and moderate to severe aortic stenosis. * B12 341, folate 10.3, TSH 1.82, hemoglobin A1c 5.6 normal, lipid panel with cholesterol 208, LDL 108, HDL 79 and triglycerides 97. * Dr. Stephan Booth Will resume neurology service from the morning.
[2021-09-15] MEDS: ATORVASTATIN 40 MG TAB PO SCH (08:59)
[2021-09-15] MEDS: amLODIPine 5 MG TAB PO SCH (08:59)
[2021-09-15] MEDS: METOPROLOL TARTRATE 25 MG TAB PO SCH ×2 (08:59→19:53)
[2021-09-15] MEDS: lisinopriL 10 MG TAB PO SCH (08:59)
[2021-09-15] MEDS ORDERED: ASPIRIN 81 MG PO SCH (09:00)
[2021-09-15 10:59] LABS: Basophils % (A) 1 %; Eosinophils # (A) 0.1 k/uL (0-0.7); Eosinophils % (A) 1 %; Lymphocytes # (A) 0.8 k/uL (1.0-4.8); Lymphocytes % (A) 15 %; MCH 31.8 pg (25.0-35.0); MCHC 34.2 g/dL (31.0-37.0); Mean Platelet Volume 7.9; Monocytes # (A) 0.5 k/uL (0-1.0); Monocytes % (A) 9 %; Neutrophils # (A) 4.1 k/uL (1.3-7.7); Neutrophils % (A) 73 %; Platelet Count 132 k/uL (150-450); RBC 3.76 m/uL (3.80-5.40); RDW 13.2 % (11.5-15.5); WBC 5.6 k/uL (3.8-10.6)
[2021-09-15 11:11] LABS: African American GFR (CKD) >90 (>60 ml/min/1.73 sqM); Anion Gap 4 mmol/L; Blood Urea Nitrogen 15 mg/dL (7-17); Calcium 9.1 mg/dL (8.4-10.2); Carbon Dioxide 25 mmol/L (22-30); Chloride 99 mmol/L (98-107); Glucose 98 mg/dL (74-99); Non-African American GFR(CKD) 84 (>60 ml/min/1.73 sqM); Potassium 3.5 mmol/L (3.5-5.1); Sodium 128 mmol/L (137-145)
--- NOTE | 2021-09-15 11:54 | P.CRDCN ---
History of Present Illness History of present illness: HISTORY OF PRESENTING ILLNESS This is a pleasant 86-year-old female past medical history significant for paroxysmal atrial fibrillation, was prescribed Xarelto and atenolol, however was non-compliant with her medications. 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 We have been asked to see in consultation for atrial fibrillation. Patient initially presents to the hospital in 09/13/2021 with slurred speech and a fall at home. Patient underwent a CT abdomen and pelvis was found to have fecal impaction and was disimpacted in the ER. CT of the brain revealed age-related atrophic and chronic small vessel ischemic change without acute intracranial process. Neurology is following plan for MRI of the brain today. Patient seen and examined at bedside, no acute distress. She is pleasantly confused, unaware of the year or that she is in the hospital. She denies any chest pain, shortness of breath, palpitations, lightheadedness or dizziness or headache. She denies any history of diabetes, hypertension, [place], previous stroke. She states she remembers being on a blood thinner but unsure why she did not take it. She states she does not take any medications at home DIAGNOSTICS EKG reveals atrial fibrillation, heart rate 94 Telemetry tracings indicate atrial fibrillation with controlled ventricular rates. Echocardiogram revealed EF of 4045 percent, LA severely dilated, negative Doppler study. No shunt noted. Moderate to severe aortic stenosis, peak/mean gradient of 56 mmHg/32 mmHg, mild to moderate mitral regurgitation, mild tricuspid regurgitation, moderate pulmonary hypertension CTA of the chest shows no evidence of pulmonary embolism. Fibrotic changes in subsegmental atelectasis at the lung bases. Cardiomegaly. CT of abdomen and pelvis shows rectal fecal impaction fibrotic changes at the lung bases. Laboratory reviewed, sodium 128, potassium 3.5, BUN 15, serum creatinine 0.5, TSH within normal limits, COVID-19 PCR negative, WBC 5.6, hemoglobin 12, platelets 132. REVIEW OF SYSTEMS At the time of my exam: CONSTITUTIONAL: Denies fever or chills. CARDIOVASCULAR: Denies chest pain, shortness of breath, orthopnea, PND or palpitations. RESPIRATORY: Denies cough. GASTROINTESTINAL: Denies abdominal pain, diarrhea, constipation, nausea or vomiting. MUSCULOSKELETAL: Denies myalgias. NEUROLOGIC: +slurred speech. Denies numbness, tingling, headacbe or weakness. ENDOCRINE: Denies fatigue, weight change, polydipsia or polyurina. GENITOURINARY: Denies burning, hematuria or urgency with micturation. HEMATOLOGIC: Denies history of anemia or bleeding. PHYSICAL EXAMINATION Blood pressure 105/89, heart 74, afebrile, maintaining oxygen saturations 96% on room air CONSTITUTIONAL: No apparent distress. HEENT: Head is normocephalic. Pupils are equal, round. Sclerae anicteric. Mucous membranes of the mouth are moist. No JVD. No carotid bruit. CHEST EXAMINATION: Lungs are clear to auscultation. No chest wall tenderness is noted on palpation or with deep breathing. HEART EXAMINATION: Irregular rate and rhythm. S1, S2 heard. No murmurs, gallops or rub. ABDOMEN: Soft, nontender. Positive bowel sounds. EXTREMITIES: 2+ peripheral pulses, no lower extremity edema and no calf tenderness. NEUROLOGIC EXAMINATION: Patient is awake, alert and oriented x3. ASSESSMENT Slurred speech Chronic persistent atrial fibrillation Moderate to severe aortic stenosis Cardiomyopathy- likely non-ischemic Hypertension PLAN -Continue metoprolol tartrate 25mg BID -Continue Xarelto 20mg nightly -Will consult case management with assistance in coverage of medication -Further recommedations based on clinical course Nurse Practitioner note has been reviewed, I agree with a documented findings and plan of care. Patient was seen and examined. Past Medical History Past Medical History: Atrial Fibrillation, Hypertension History of Any Multi-Drug Resistant Organisms: None Reported Past Surgical History: No Surgical Hx Reported Past Anesthesia/Blood Transfusion Reactions: No Reported Reaction Past Psychological History: No Psychological Hx Reported Smoking Status: Never smoker Past Alcohol Use History: None Reported Past Drug Use History: None Reported Medications and Allergies Home Medications Medication Instructions Recorded Confirmed Type Rivaroxaban [Xarelto] 20 mg PO W/SUPPER 30 Days #30 tab 09/15/21 Rx Allergies Allergy/AdvReac Type Severity Reaction Status Date / Time No Known Allergies Allergy Verified 09/13/21 05:06 Physical Exam Vitals: Vital Signs Temp Pulse Resp BP Pulse Ox 09/15/21 08:15 97.6 F 74 18 105/89 94 L 09/15/21 03:10 99.2 F 84 18 155/78 94 L 09/15/21 01:16 75 09/14/21 23:34 98.2 F 75 16 161/89 96 09/14/21 20:00 97.2 F L 82 18 133/83 93 L 09/14/21 16:40 98.3 F 62 16 134/80 98 09/14/21 13:10 74 16 Intake and Output 09/14/21 09/15/21 09/15/21 22:59 06:59 14:59 Intake Total 800 Output Total 400 1100 300 Balance 400 -1100 -300 Intake: Intake, IV Titration 260 Amount Sodium Chloride 0.9% 1, 260 000 ml @ 130 mls/hr IV . Q7H42M [facility] Rx#:[id number] Oral 540 Output: Urine 400 1100 300 Uretheral ([place]) 400 300 Other: Voiding Method Indwelling Catheter Indwelling Catheter Indwelling Catheter Weight 45.9 kg Results 09/15/21 10:33 09/15/21 10:33 Lipids 09/14/21 Range/Units 08:24 Triglycerides 97.80 (0.00-149.00) mg/dL Cholesterol 208.00 H (0.00-200.00) mg/dL HDL Cholesterol 79.90 H (40.00-60.00) mg/dL Cholesterol/HDL Ratio 2.60 Ratio CBC 09/15/21 Range/Units 10:33 WBC 5.6 (3.8-10.6) k/uL RBC 3.76 L (3.80-5.40) m/uL Hgb 12.0 (11.4-16.0) gm/dL Hct 35.0 (34.0-46.0) % Plt Count 132 L (150-450) k/uL Comprehensive Metabolic Panel 09/15/21 Range/Units 10:33 Sodium 128 L (137-145) mmol/L Potassium 3.5 (3.5-5.1) mmol/L Chloride 99 (98-107) mmol/L Carbon Dioxide 25 (22-30) mmol/L BUN 15 (7-17) mg/dL Creatinine 0.57 (0.52-1.04) mg/dL Glucose 98 (74-99) mg/dL Calcium 9.1 (8.4-10.2) mg/dL Current Medications Generic Name Dose Route Start Last Admin Trade Name Freq PRN Reason Stop Dose Admin Amlodipine Besylate 5 mg 09/14/21 11:00 09/15/21 08:59 Amlodipine 5 Mg Tab PO 5 mg DAILY KRYSTAL Administration Atorvastatin Calcium 40 mg 09/14/21 11:00 09/15/21 08:59 Atorvastatin 40 Mg Tab PO 40 mg DAILY KRYSTAL Administration Lisinopril 10 mg 09/14/21 09:00 09/15/21 08:59 Lisinopril 10 Mg Tab PO 10 mg DAILY KRYSTAL Administration Metoprolol Tartrate 25 mg 09/13/21 21:00 09/15/21 08:59 Metoprolol Tartrate 25 Mg Tab PO 25 mg BID KRYSTAL Administration Naloxone HCl 0.2 mg 09/13/21 06:18 09/13/21 06:46 Naloxone 0.4 Mg/Ml 1 Ml Vial IV 0.2 mg Q2M PRN Administration Opioid Reversal Ondansetron HCl 4 mg 09/13/21 06:18 Ondansetron 4 Mg/2 Ml Vial IVP Q8HR PRN Nausea And Vomiting Rivaroxaban 20 mg 09/14/21 17:30 09/14/21 17:11 Rivaroxaban 20 Mg Tab PO 20 mg W/SUPPER KRYSTAL Administration Protocol Intake and Output 09/14/21 09/15/21 09/15/21 22:59 06:59 14:59 Intake Total 800 Output Total 400 1100 300 Balance 400 -1100 -300 Intake: Intake, IV Titration 260 Amount Sodium Chloride 0.9% 1, 260 000 ml @ 130 mls/hr IV . Q7H42M [facility] Rx#:[id number] Oral 540 Output: Urine 400 1100 300 Uretheral ([place]) 400 300 Other: Voiding Method Indwelling Catheter Indwelling Catheter Indwelling Catheter Weight 45.9 kg 09/15/21 10:33 09/15/21 10:33
--- NOTE | 2021-09-15 13:27 | P.PN ---
Subjective Patient is doing fairly well today. No acute events overnight. Awaiting MRI of the brain to be done later today or tomorrow morning according to nursing staff. Objective - Vital Signs Vital signs: Vital Signs Temp 97.6 F 09/15/21 08:15 Pulse 74 09/15/21 08:15 Resp 18 09/15/21 08:15 BP 105/89 09/15/21 08:15 Pulse Ox 94 L 09/15/21 08:15 Intake & Output 09/14/21 09/15/21 09/15/21 18:59 06:59 18:59 Intake Total 1340 Output Total 1200 1100 300 Balance 140 -1100 -300 Weight 45.9 kg Intake: Intake, IV Titration 260 Amount Sodium Chloride 0.9% 1, 260 000 ml @ 130 mls/hr IV . Q7H42M [facility] Rx#:[id number] Oral 1080 Output: Urine 1200 1100 300 Uretheral ([place]) 400 300 Other: Voiding Method Indwelling Catheter Indwelling Catheter Indwelling Catheter - Exam General: The patient is awake and alert, in no distress Eye: there is normal conjunctiva bilaterally. Neck: The neck is supple, there is no JVD. Cardiovascular: Normal S1-S2, no S3-S4, no murmurs. Respiratory: Lungs clear to auscultation bilaterally Gastrointestinal: Abdomen is soft, nontender Musculoskeletal: There is no pedal edema. Neurological:. Speech is normal. Skin: Skin is warm and dry - Labs CBC & Chem 7: 09/15/21 10:33 09/15/21 10:33 Labs: Abnormal Lab Results - Last 24 Hours (Table) 09/14/21 09/15/21 09/15/21 Range/Units 08:24 10:33 10:33 RBC 3.76 L (3.80-5.40) m/uL Plt Count 132 L (150-450) k/uL Lymphocytes # 0.8 L (1.0-4.8) k/uL Sodium 128 L (137-145) mmol/L Cholesterol 208.00 H (0.00-200.00) mg/dL HDL Cholesterol 79.90 H (40.00-60.00) mg/dL Assessment and Plan Assessment: This is a 86-year-old female with past medical history significant for nonicteric atrial fibrillation noncompliant with anticoagulation that presented to the emergency room brought in by her son for slurred speech. Patient was given IV morphine and IV Ativan in the ER and currently she is completely obtunded. Below is as of her medical problems: 1. Suspected CVA/TIA 2. Acute toxo metabolic encephalopathy secondary to benzodiazepine and opiate in older opiate carolyne patient, now resolved 3. History of atrial fibrillation not on anticoagulation secondary to non compliance: I will start patient on Rivaroxaban and 20 mg daily at the time. This was discussed with her and her son and patient verbalized willing to be compliant with medications 4. CODE STATUS: Patient is DO NOT RESUSCITATE/DO NOT INTUBATE Today, I reviewed her medication list and lab work results. Computed tomography scan of the head showed no acute intracranial findings. Awaiting MRI for further evaluation Echocardiogram showed preserved ejection fraction with moderate to severe aortic sclerosis and severe aortic stenosis. No evidence of intracardiac shunt Allowed permissive hypertension on presentation now on lisinopril 10 mg daily, amlodipine 5 mg daily, metoprolol 25 mg twice a day Continue metoprolol 25 mg twice a day for underlying A. fib/hypertension PT/OT/speech pathology evaluation Appreciate neurology recommendations
[2021-09-15 14:16] VITALS: BMI 16.8
--- NOTE | 2021-09-15 16:24 | P.PN ---
Subjective Progress Note Date: 09/15/21 I am seeing the patient for the first time for neurological management. Please refer to Dr. Cash's note for further details. Per the nurse, the patient is about the same today since she had her over the we ekend. Patient denies of any focal weakness, numbness, visual disturbance. Objective - Vital Signs Vital signs: Vital Signs Temp 96.3 F L 09/15/21 13:34 Pulse 70 09/15/21 13:34 Resp 18 09/15/21 13:34 BP 126/75 09/15/21 13:34 Pulse Ox 95 09/15/21 13:34 Intake & Output 09/14/21 09/15/21 09/15/21 18:59 06:59 18:59 Intake Total 1340 100 Output Total 1200 1100 300 Balance 140 -1100 -200 Weight 45.9 kg 45.9 kg Intake: Intake, IV Titration 260 Amount Sodium Chloride 0.9% 1, 260 000 ml @ 130 mls/hr IV . Q7H42M [facility] Rx#:[id number] Oral 1080 100 Output: Urine 1200 1100 300 Uretheral ([place]) 400 300 Other: Voiding Method Indwelling Catheter Indwelling Catheter Indwelling Catheter - Exam GENERAL: The patient is a pleasant 86-year-old woman lying in bed and is not in acute distress. NEUROLOGICAL: Higher mental function: The patient is awake, alert, oriented to self and place. She is not oriented to time (even with options). She correctly names some objects (pen, watch and glasses). She keep on asking what she is doing here. Patient is following simple commands. No aphasia and no neglect. Cranial nerves: The pupils are round, equal and reactive to light and accommodation. Visual steward are full to confrontation throughout. Extraocular movement is intact no nystagmus is noted. Facial sensation is normal to touch throughout. The facial strength is normal throughout. Hearing is modaterly decreased bilaterally to hand rub. Tongue is midline and moved [id number] without any difficulty. No dysarthria is noted. Shoulder shrug is normal bilaterally. Motor: Gait is deferred. The strength is 5 over 5 throughout. Normal tone and bulk. Cerebellum: Normal finger to nose bilaterally. Sensation: Sensation is normal to touch throughout.. Plantars are downgoing bilaterally. WORK-UP: * CT of the head is reported as age-related atrophic and chronic small vessel ischemic change without acute intracranial process seen at this time. * Carotid Doppler revealed no evidence for hemodynamically significant stenosis. Moderate plaque. Antegrade flow in both vertebral arteries. No significant stenosis. * 2-D echo revealed normal left ventricular size. Borderline concentric LVH. Left ventricle systolic function is mild to moderately impaired with EF between 40-45%. Left atrium is severely dilated. Contrast study was performed with 1 IV injection of 8 mL of agitated normal saline at rest. Negative saline bubble study. No shunt noted. 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 Moderate to severe aortic stenosis. Mild to moderate MR. * Vitamin B12 341, folate 10.3, * TSH 1.82, * hemoglobin A1c 5.6 normal, * lipid panel with cholesterol 208, LDL 108, HDL 79 and triglycerides 97. - Labs CBC & Chem 7: 09/15/21 10:33 09/15/21 10:33 Labs: Abnormal Lab Results - Last 24 Hours (Table) 09/14/21 09/15/21 09/15/21 Range/Units 08:24 10: 10:33 RBC 3.76 L (3.80-5.40) m/uL Plt Count 132 L (150-450) k/uL Lymphocytes # 0.8 L (1.0-4.8) k/uL Sodium 128 L (137-145) mmol/L Cholesterol 208.00 H (0.00-200.00) mg/dL HDL Cholesterol 79.90 H (40.00-60.00) mg/dL Assessment and Plan Assessment: * Status post fall unclear etiology, ? Syncope or fall due to losing balance. * Episode of slurred speech, not able to express, rule out TIA. * Somnolence/AMS, likely due to medication induced. Patient was given Dilaudid, morphine and Ativan, which likely resulted in somnolence--improved. * Atrial fibrillation, currently not on anticoagulation. * Medication noncompliance. Patient has not been taking any medication whatsoever for last 2 years. * Mild cognitive impairment * Hypertension Plan: * She was not taking any anticoagulants or antiplatelet medication at home. Patient has been started on aspirin 81 mg in the hospital. Dr. Cash had discussion with patient and her son about resuming anticoagulation because of atrial fibrillation. Both of them are agreeing to be started on anticoagulation. And the patient was started on Xarelto 20 mg nightly by the primary team and aspirin was stopped (cardiology team is in agreement with Xarelto). Continue Lipitor 40 mg daily. * Dr. Cash consulted cardiology because of the patient atrial fibrillation and moderate to severe aortic stenosis. * MRI of the brain is ordered by the primary team is pending. * PT, OT and [employer] E[employer]OMIST are consulted. * Continue neuro checks * Because of vitamin B12 is low normal opening the patient on vitamin B12 500 g daily. * We'll defer the rest of the medical management to the primary team. * Upon discharge recommend the patient follow up with a neurologist within 1-2 weeks. The plan is discussed with the patient's nurse. Stephan Booth M.D. Neuro-hospitalist Time with Patient: Less than 30
[2021-09-15] MEDS: RIVAROXABAN 20 MG TAB PO SCH (16:28)
[2021-09-15] MEDS: CYANOCOBALAMIN 500 MCG TAB PO SCH (16:28)
--- NOTE | 2021-09-15 21:46 | MR ---
EXAMINATION TYPE: MR brain wo con DATE OF EXAM: 09/15/2021 COMPARISON: None HISTORY: Patient having urinary Retention, r/o CVA. Multiplanar multiecho imaging of the brain without contrast. There is moderate diffuse cerebral cortical atrophy. There is no mass effect nor midline shift. Diffu ayaz images show small foci of increased signal in the medial left cerebellar hemisphere that measure 6 mm and could be acute infarct. There is also increased signal in the medial left cerebellar hemisphere on the FLAIR images in same l ocation and measures 2 x 1 cm. There is 4 mm focus of increased signal in the left side of the lanre c onsistent with an old lacunar infarct. There is coalescent increased signal in the periventricular wh ite matter on the T2 and FLAIR images. These areas measure up to 1 cm in thickness. There is no evidence of orbital mass. Sella turcica is intact. IMPRESSION: Cerebral atrophy. Extensive white matter changes probably due to chronic small vessel ischemia. Acute or subacute infarct left cerebellar hemisphere. Old lacunar infarct in the left side of the iliana s.
[2021-09-16 03:13] VITALS: RESP 16
[2021-09-16] MEDS: amLODIPine 5 MG TAB PO SCH (09:22)
[2021-09-16] MEDS: ATORVASTATIN 40 MG TAB PO SCH (09:22)
[2021-09-16] MEDS: CYANOCOBALAMIN 500 MCG TAB PO SCH (09:22)
[2021-09-16] MEDS: METOPROLOL TARTRATE 25 MG TAB PO SCH (09:22)
[2021-09-16] MEDS: lisinopriL 10 MG TAB PO SCH (09:22)
[2021-09-16 09:25] VITALS: BP 141/89; PULSE 78; TEMP 97.2
[2021-09-16 09:33] LABS: African American GFR (CKD) >90 (>60 ml/min/1.73 sqM); Anion Gap 7 mmol/L; Blood Urea Nitrogen 12 mg/dL (7-17); Calcium 9.1 mg/dL (8.4-10.2); Carbon Dioxide 25 mmol/L (22-30); Chloride 97 mmol/L (98-107); Glucose 114 mg/dL (74-99); Non-African American GFR(CKD) 84 (>60 ml/min/1.73 sqM); Potassium 3.7 mmol/L (3.5-5.1); Sodium 129 mmol/L (137-145)
--- NOTE | 2021-09-16 10:50 | P.PN ---
Subjective Progress Note Date: 09/16/21 She was seen at bedside and that she stated that she's doing well. Denies of any focal weakness, numbness or any visual disturbance. She is accompanied with her daughter. Objective - Vital Signs Vital signs: Vital Signs Temp 97.2 F L 09/16/21 08:00 Pulse 78 09/16/21 08:00 Resp 16 09/16/21 08:00 BP 141/89 09/16/21 08:00 Pulse Ox 95 09/16/21 03:12 Intake & Output 09/15/21 09/16/21 09/16/21 18:59 06:59 18:59 Intake Total 180 Output Total 600 1750 Balance -420 -1750 Weight 45.9 kg Intake: Oral 180 Output: Urine 600 1300 Uretheral ([place]) 300 Post Void Residual 450 Other: Voiding Method Indwelling Catheter Bedside Commode Bedpan # Bowel Movements 0 - Exam GENERAL: The patient is a pleasant 86-year-old woman lying in bed and is not in acute distress. NEUROLOGICAL: Higher mental function: The patient is awake, alert, oriented to self and place. She is not oriented to time (even with options). She correctly names some objects (pen, watch and glasses). She keep on asking what she is doing here. Patient is following simple commands. No aphasia and no neglect. Cranial nerves: The pupils are round, equal and reactive to light and accommodation. Visual steward are full to confrontation throughout. Extraocular movement is intact no nystagmus is noted. Facial sensation is normal to touch throughout. The facial strength is normal throughout. Hearing is modaterly decreased bilaterally to hand rub. Tongue is midline and moved [id number] without any difficulty. No dysarthria is noted. Shoulder shrug is normal bilaterally. Motor: Gait is deferred. The strength is 5 over 5 throughout. Normal tone and bulk. Cerebellum:Ataxic and overshooting finger to nose over the left but normal over the right. Sensation: Sensation is normal to touch throughout.. Plantars are downgoing bilaterally. WORK-UP: * CT of the head is reported as age-related atrophic and chronic small vessel ischemic change without acute intracranial process seen at this time. * MRI of the brain: As reported as acute or subacute infarct in the left cerebral hemisphere. Old lacunar infarct in the left side of the lanre. Cerebral atrophy. Extensive white matter changes probably due to chronic small vessel ischemia. * Carotid Doppler revealed no evidence for hemodynamically significant stenosis. Moderate plaque. Antegrade flow in both vertebral arteries. No significant stenosis. * 2-D echo revealed normal left ventricular size. Borderline concentric LVH. Left ventricle systolic function is mild to moderately impaired with EF between 40-45%. Left atrium is severely dilated. Contrast study was performed with 1 IV injection of 8 mL of agitated normal saline at rest. Negative saline bubble study. No shunt noted. 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 Moderate to severe aortic stenosis. Mild to moderate MR. * Vitamin B12 341, folate 10.3, * TSH 1.82, * hemoglobin A1c 5.6 normal, * lipid panel with cholesterol 208, LDL 108, HDL 79 and triglycerides 97. - Labs CBC & Chem 7: 09/15/21 10:33 09/16/21 08:32 Labs: Abnormal Lab Results - Last 24 Hours (Table) 09/15/21 09/15/21 Range/Units 10:33 10:33 RBC 3.76 L (3.80-5.40) m/uL Plt Count 132 L (150-450) k/uL Lymphocytes # 0.8 L (1.0-4.8) k/uL Sodium 128 L (137-145) mmol/L Assessment and Plan Assessment: * Acute to subacute ischemic stroke (has symptoms of slurred speech, not able to express. On examination she has ataxia finger to nose over the left). On my the brain is reported as acute to subacute left cerebellar. Etiology seems cardioembolic especially with history of A-fib and was not on anticoagulation * Status post fall unclear etiology, ? Syncope or fall due to losing balance. * Somnolence/AMS, likely due to medication induced. Patient was given Dilaudid, morphine and Ativan, which likely resulted in somnolence--improved. * Atrial fibrillation, currently not on anticoagulation. * Medication noncompliance. Patient has not been taking any medication whatsoever for last 2 years. * Mild cognitive impairment * Hypertension Plan: * She was not taking any anticoagulants or antiplatelet medication at home. Patient has been started on aspirin 81 mg in the hospital. Dr. Cash had discussion with patient and her son about resuming anticoagulation because of atrial fibrillation. Both of them are agreeing to be started on anticoagulation. And the patient was started on Xarelto 20 mg nightly by the primary team and aspirin was stopped (cardiology team is in agreement with Xarelto). Continue Lipitor 40 mg daily. * Dr. Cash consulted cardiology because of the patient atrial fibrillation and moderate to severe aortic stenosis. * PT, OT and [employer] are consulted. * Continue neuro checks * Because of vitamin B12 is low normal opening the patient on vitamin B12 500 g daily. * We'll defer the rest of the medical management to the primary team. * Upon discharge recommend the patient follow up with a neurologist within 1-2 weeks. The plan is discussed with the patient's daughter who is at bedside. She is clear for discharge from neurological perspective. Stephan Booth M.D. Neuro-hospitalist Time with Patient: Less than 30
--- NOTE | 2021-09-16 12:08 | P.PN ---
Subjective This is a pleasant 86-year-old female past medical history significant for paroxysmal atrial fibrillation, was prescribed Xarelto and atenolol, however was non-compliant with her medications. She does not follow with a [employer] b[employer] architect. We have been asked to see in consultation for atrial fibrillation. Patient initially presents to the hospital in 09/13/2021 with slurred speech and a fall at home. She was found to have fecal impactation and disimpacted in the ER. MRI revealed acute or subacute infarct left cerebral hemisphere. Old lacunar infarc t in the left side of the lanre. Patient seen and examined at bedside, no acute distress. She is pleasantly confused, unaware of the date/year or that she is in the hospital. She denies any chest pain, shortness of breath, palpitations, lightheadedness or dizziness or headache. Telemetry tracings indicate atrial fibrillation with controlled ventricular rates. She is currently maintained on amlodipine 5 mg daily, atorvastatin 40 mg daily, lisinopril 10 mg twice a day, metoprolol tartrate 25 mg, Xarelto 20 mg nightly PHYSICAL EXAMINATION Blood pressure 141/89, heart rate 70, afebrile oxygen saturations 95% on room air CONSTITUTIONAL: No apparent distress. HEENT: Neck Supple. No JVD. CHEST EXAMINATION: Lungs are clear to auscultation. No chest wall tenderness is noted on palpation or with deep breathing. HEART EXAMINATION: Irregular rate and rhythm. S1, S2 heard. No murmurs, gallops or rub. ABDOMEN: Soft, nontender. Positive bowel sounds. EXTREMITIES: 2+ peripheral pulses, no lower extremity edema and no calf tenderness. 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 Please reach out with further questions or concerns. -Follow up outpatient with Dr. Pimentel as an outpatient. Nurse Practitioner note has been reviewed, I agree with a documented findings and plan of care. Patient was seen and examined. Objective - Vital Signs Vital signs: Vital Signs Temp 97.2 F L 09/16/21 08:00 Pulse 78 09/16/21 08:00 Resp 16 10/26/21 08:00 BP 141/89 09/16/21 08:00 Pulse Ox 95 09/16/21 03:12 Intake & Output 09/15/21 09/16/21 09/16/21 18:59 06:59 18:59 Intake Total 180 90 Output Total 600 1750 Balance -420 -1750 90 Weight 45.9 kg Intake: Oral 180 90 Output: Urine 600 1300 Uretheral ([place]) 300 Post Void Residual 450 Other: Voiding Method Indwelling Catheter Bedside Commode Bedpan # Bowel Movements 0 - Labs CBC & Chem 7: 09/15/21 10:33 09/16/21 08:32 Labs: Abnormal Lab Results - Last 24 Hours (Table) 09/15/21 09/15/21 09/16/21 Range/Units 10:33 10:33 08:32 RBC 3.76 L (3.80-5.40) m/uL Plt Count 132 L (150-450) k/uL Lymphocytes # 0.8 L (1.0-4.8) k/uL Sodium 128 L 129 L (137-145) mmol/L Chloride 97 L (98-107) mmol/L Glucose 114 H (74-99) mg/dL
--- NOTE | 2021-09-16 13:41 | P.DS ---
Providers Date of admission: 09/13/21 06:18 Expected date of discharge: 09/16/21 Attending physician: Bradnyn Sheridan MD Consults: 09/13/21 12:56 Consult Physician Routine Consulting Provider: Stephan Booth Consult Reason/Comments: r/o CVA Do you want consulting provider notified?: Yes 09/14/21 15:47 Consult Physician Routine Consulting Provider: Juan Jose Pimentel Consult Reason/Comments: Patient with Atrial fibrillation, previously decline d anticoag, but now OK Do you want consulting provider notified?: Yes Primary care physician: Stated None Hospital Course: This is a 86-year-old female with past medical history significant for nonicteric atrial fibrillation noncompliant with anticoagulation that presented to the emergency room brought in by her son for slurred speech. Below is as of her medical problems: 1. Acute or subacute infarct involving the left cerebral hemisphere noted on MRI of the brain 2. Acute toxo metabolic encephalopathy secondary to benzodiazepine and opiate in older opiate carolyne patient, now resolved 3. History of atrial fibrillation not on anticoagulation at home secondary to noncompliance: I will start patient on Rivaroxaban and 20 mg daily at the time. This was discussed with her and her son and patient verbalized willing to be compliant with medications 4. CODE STATUS: Patient is DO NOT RESUSCITATE/DO NOT INTUBATE Today, I reviewed her medication list and lab work results. Computed tomography scan of the head showed no acute intracranial findings. Echocardiogram showed preserved ejection fraction with moderate to severe aortic sclerosis and severe aortic stenosis. No evidence of intracardiac shunt Allowed permissive hypertension on presentation now on lisinopril 10 mg daily, amlodipine 5 mg daily, metoprolol 25 mg twice a day PT/OT/speech pathology consulted Patient was seen and evaluated by neurology and cleared for discharge She will be discharged to snf facility for subacute rehab General: The patient is awake and alert, in no distress Eye: there is normal conjunctiva bilaterally. Neck: The neck is supple, there is no JVD. Cardiovascular: Normal S1-S2, no S3-S4, no murmurs. Respiratory: Lungs clear to auscultation bilaterally Gastrointestinal: Abdomen is soft, nontender Musculoskeletal: There is no pedal edema. Neurological:. Speech is normal. Skin: Skin is warm and dry Patient Condition at Discharge: Fair Plan - Discharge Summary New Discharge Prescriptions: New Atorvastatin [Lipitor] 40 mg PO DAILY #30 tab lisinopriL [Zestril] 10 mg PO DAILY #30 tab Rivaroxaban [Xarelto] 20 mg PO W/SUPPER 30 Days #30 tab Metoprolol Tartrate [Lopressor] 25 mg PO BID #60 tab amLODIPine [Norvasc] 5 mg PO DAILY #30 tab Discharge Medication List Rivaroxaban [Xarelto] 20 mg PO W/SUPPER 30 Days #30 tab 09/15/21 [Rx] Atorvastatin [Lipitor] 40 mg PO DAILY #30 tab 09/16/21 [Rx] Metoprolol Tartrate [Lopressor] 25 mg PO BID #60 tab 09/16/21 [Rx] amLODIPine [Norvasc] 5 mg PO DAILY #30 tab 09/16/21 [Rx] lisinopriL [Zestril] 10 mg PO DAILY #30 tab 09/16/21 [Rx] Follow up Appointment(s)/Referral(s): Juan Jose Pimentel MD [STAFF PHYSICIAN] - 2 Weeks None,Stated [Primary Care Provider] - 1-2 days Patient Instructions/Handouts: Rivaroxaban (By mouth) Activity/Diet/Wound Care/Special Instructions: [facility] has been referred for home health services. They will contact to schedule the first visit. Discharge Disposition: TRANSFER TO SNF/ECF
[2021-09-16] MEDS ORDERED: lisinopriL 10 MG TAB PO SCH (21:00)
== END 2021-09-16 15:14 | DRG 64 ==
LOC: EC 03:48 → 5NMEDONC 06:18 → 3SCARD 11:35
PROVIDERS: ADMIT Internal Medicine; ATTEND Internal Medicine
DX: I63.9 Cerebral infarction, unspecified (principal); G93.41 Metabolic encephalopathy; E87.1 Hypo-osmolality and hyponatremia; I48.19 Other persistent atrial fibrillation; G31.84 Mild cognitive impairment of uncertain or unknown etiology; Z20.822 Contact with and (suspected) exposure to COVID-19; Z66 Do not resuscitate; H91.90 Unspecified hearing loss, unspecified ear; I16.0 Hypertensive urgency; I10 Essential (primary) hypertension; I25.5 Ischemic cardiomyopathy; I70.0 Atherosclerosis of aorta; Z91.19 Patient's noncompliance with other medical treatment and regimen; I08.0 Rheumatic disorders of both mitral and aortic valves; Z91.14 Patient's other noncompliance with medication regimen; Z86.73 Personal history of transient ischemic attack (TIA), and cerebral infarction without residual deficits; Z79.899 Other long term (current) drug therapy; Z79.82 Long term (current) use of aspirin; Z79.01 Long term (current) use of anticoagulants; I27.20 Pulmonary hypertension, unspecified
CPT/HCPCS: 36415; 70450; 70551; 71275; 74177; 80048; 80053; 80061; 81003; 82607; 82746; 83036; 83605; 83735; 84100; 84443; 84484; 85025; 85610; 85730; 87635; 93005; 93306; 93880; 96361; 96374; 96375; 99285